=== PATIENT | male | born 2000 | race Two or more races ===

== ENCOUNTER 2025-03-18 21:57 | Emergency (ER) | payer SELFPAY ==
[2025-03-18 21:58] VITALS: BP 162/92
--- NOTE | 2025-03-18 22:43 | ED.GENMED ---
History of Present Illness
General
Chief Complaint: Dental Problem
Source: patient
Exam Limitations: none
Time Seen by Provider: 03/18/25 22:14
Nursing documentation reviewed up to this point in time: agreed with
History of Present Illness
History of Present Illness:
Note:
CHIEF COMPLAINT(S)
Dental pain on the right side affecting upper and lower jaws, aggravated by jaw movement and talking.
HISTORY OF PRESENT ILLNESS
The patient is a 24-year-old male presenting with pain on the right side of his face, specifically in the upper and lower jaws. The pain has been ongoing for an unspecified duration and worsens with jaw movement and speaking. He denies experiencing
any fever, chills, vomiting, or pus discharge. The patient is unsure if the issue is nerve-related, but he describes significant discomfort that he carries with him and occasional back pain. He has not yet seen a dentist.
PLAN
- Initiate treatment with Amoxicillin antibiotics to address any potential dental infection.
- Prescribe non-narcotic long-acting pain medication to manage the dental pain.
- Provide the patient with a list of dentists for follow-up care.
- Administer the first doses of pain medication and antibiotics in the facility and send prescriptions to the pharmacy for continuation.
DIFFERENTIAL DIAGNOSIS
The Differential Diagnosis includes, in no particular order and is not limited to:
1. Dental abscess
2. Temporomandibular joint disorder
3. Pericoronitis
4. Trigeminal neuralgia
5. Sinusitis
6. Alveolar osteitis (dry socket)
7. Gingivitis or periodontal disease
8. Maxillary sinusitis
9. Dental caries
10. Pulpitis
Disposition:
SUMMARY OF ENCOUNTER
The patient, a 24-year-old male, presented with dental pain on the right side affecting both the upper and lower jaws. The pain is exacerbated by jaw movement, but there is no visible abscess or external swelling. He has no tenderness over the
sinuses and no visible dental cavities. The decision was made to start antibiotic treatment and recommend follow-up care with a dentist.
PLAN
Initiate antibiotic treatment to address any potential underlying dental infection. Recommend that the patient follow up with a dentist for further evaluation and definitive care.
PATIENT EDUCATION AND COUNSELING
The patient was informed about the importance of antibiotic treatment in managing potential dental infections and advised on the need for follow-up with a dentist to adequately address his dental pain and any underlying issues.
MEDICATION RECONCILIATION
Prescribed Amoxicillin for suspected dental infection. Prescribed long-acting, non-narcotic pain medication to manage dental pain.
MEDICAL DECISION MAKING
1. Number and Complexity of Problems Addressed: DDx list includes: Dental abscess, Temporomandibular joint disorder, Pericoronitis, Trigeminal neuralgia, Sinusitis, Alveolar osteitis (dry socket), Gingivitis or periodontal disease, Maxillary
sinusitis, Dental caries, Pulpitis.
3. Risk: Prescription medication was prescribed: Amoxicillin and non-narcotic long-acting pain medication.
DIAGNOSIS
Dental pain, unspecified (ICD-10: K08.8). Dental caries, unspecified (ICD-10: K02.9). Potential dental infection (assessment pending dental evaluation).
Exam performed with the help of language line
Phy Exam
Physical Exam
Physical Exam:
.
Course
Orders/Labs/Results
Orders:
Orders
03/18/25 22:41
Amoxicillin [Amoxil] 1,000 mg PO NOW STA
03/18/25 22:43
Ibuprofen [Motrin] 600 mg PO NOW STA
Vital Signs
Initial and Last Documented VS:
Initial Vital Signs
Temp Pulse Resp BP Pulse Ox
98.2 F 73 16 162/92 98
03/18/25 21:58 03/18/25 21:58 03/18/25 21:58 03/18/25 21:58 03/18/25 21:58
Last Documented Vital Signs
Temp Pulse Resp BP Pulse Ox
98.2 F 73 16 162/92 98
03/18/25 21:58 03/18/25 21:58 03/18/25 21:58 03/18/25 21:58 03/18/25 21:58
*Pulse Oximetry
SaO2: 98
Oxygen Mode of Delivery: Room air
Patient hypoxic: no
*Critical Care Note
Total Time (30-74mins, 75-104mins- exclusive of procedures): Not Applicable
ED Attending Note
-
Portions of this chart may have been created with voice recognition software.� Occasional wrong word or��sound alike� substitutions may have occurred due to the inherent limitations of voice recognition software.
Discharge Plan
Departure
Patient Disposition: Home (Routine Discharge)
Date of Disposition: 03/18/25
Time of Disposition: 22:46
Patient with high blood pressure during this ER visit?: Yes
Discharge Problem:
Dentalgia
Instructions: Dental Pain (DC), BLOOD PRESSURE
Prescriptions:
New
diclofenac sodium 75 mg tablet,delayed release (DR/EC)
75 mg PO BID Qty: 10 0RF
amoxicillin 500 mg capsule
500 mg PO BID Qty: 20 0RF
Referrals:
[facility] [Outside]
Activity Restrictions/Additional Instructions:
Your prescriptions were sent electronically to the pharmacy that you specified.
Thank You for choosing [facility].
It was a pleasure meeting you and taking part in your care. We hope for your continued healing and wellness.
Please read discharge instructions in their entirety. However, they are for general education and may not describe your exact diagnosis at discharge. Information on your ER visit and medical conditions were discussed with you along with appropriate
follow up information...
If indicated, please take your medications as instructed and indicated on discharge paperwork.
Please schedule a follow up appointment as directed. Call to schedule an appointment
Please return to the emergency department with ANY change in, persisting, or worsening of symptoms. If any of your symptoms do not improve, or persist, or become more severe within 6-12 hours, please return to the emergency department for further
care.
Please return to the emergency department if you develop a headache, neck pain/stiffness, fever greater than 100.4F, chest pain, shortness of breath, persistent nausea, vomiting, slurred speech, difficulty walking, numbness/tingling, weakness, signs
of infection or any other symptoms that are worrisome to you.
If you have any questions or concerns please do not hesitate to call the Hospital at .
Interventions
Interventions:
*Risk Screen - Suicide Last Done: 03/18/25 21:58
*General Assessment Last Done: 03/18/25 22:44
*Neglect/Abuse Screening Last Done: 03/18/25 21:58
*ED- Fall Risk Assessment Last Done: 03/18/25 22:41
*ED COVID-19 Vaccine History Last Done: 03/18/25 22:41
*ED Influenza Vaccine History Last Done: 03/18/25 22:41
Discharge Date and Time
Print Language: LATVIAN
[2025-03-18] MEDS: AMOXIL 1000 MG PO (22:52)
[2025-03-18] MEDS: MOTRIN 600 MG PO (22:52)
== END 2025-03-18 22:56 | disposition home or self-care (01) ==
LOC: EMR 21:57
PROVIDERS: EMERGENCY PHYSICIAN Student in an Organized Health Care Education/Training Program
DX: K08.89 Other specified disorders of teeth and supporting structures (principal); K02.9 Dental caries, unspecified
CPT/HCPCS: 99283